=== PATIENT | male | born 1955 | race Caucasian/White ===

== ENCOUNTER 2016-11-21 00:32 | Emergency (ER) | payer BC ==
[~2016-11-21] VITALS: Ht 162.6 cm; Wt 91.4 kg
[2016-11-21 01:27] LABS: MCHC 35.6 G/DL (30.0-36.0); MCV 84.4 FL (86-99); MEAN PLAT.VOLUME 9.5 uM^3 (9.0-12.4); PLATELET COUNT 149 K/uL (156-360); RBC DIS.WIDTH-CV 11.9 % (11.8-14.6); RBC DIS.WIDTH-SD 35.9 % (39-53); RED BLOOD COUNT 4.86 M/uL (4.00-5.50); WHITE BLOOD COUNT 5.8 K/uL (4.1-10.2)
[2016-11-21 01:39] LABS: CHLORIDE 104 mEq/L (99-109); POTASSIUM 3.8 mEq/L (3.7-5.4); SODIUM 138 mEq/L (136-147)
[2016-11-21 01:41] LABS: GLUCOSE 305 mg/dL (70-99)
[2016-11-21 01:42] LABS: ANION GAP 15 MEQ/L (2-14)
[2016-11-21 01:44] LABS: GFR ESTIMATE (CALCULATED) > 59 mL/min/
[2016-11-21 01:45] LABS: UREA NITROGEN (BUN) 18 mg/dL (9-23)
[2016-11-21 01:48] LABS: TROP-I INTERPRETATION NEGATIVE; TROPONIN-I < 0.01 ng/mL (0.0-0.30)
[2016-11-21 02:12] LABS: ADD MIUA? NO; BILIRUBIN NEGATIVE; BLOOD NEGATIVE; COLOR YELLOW ((YELLOW)); GLUCOSE (STRIP) >=500; KETONES NEGATIVE; LEUKOCYTES NEGATIVE; NITRITE NEGATIVE; PROTEIN (STRIP) NEGATIVE; UCUL ADDED? NO; UROBILINOGEN 0.2 MG/DL (0.2-1.0)
[2016-11-21] MEDS ORDERED: ZANTAC150 MG PO (02:17)
[2016-11-21 02:34] VITALS: BP 161/82
== END 2016-11-21 02:35 | disposition home or self-care (01) ==
LOC: EME 00:32 → EXP 00:32
PROVIDERS: Physician Assistant
DX: R10.13 Epigastric pain (principal); I10 Essential (primary) hypertension; E11.9 Type 2 diabetes mellitus without complications; Z79.84 Long term (current) use of oral hypoglycemic drugs; T38.3X6A Underdosing of insulin and oral hypoglycemic [antidiabetic] drugs, initial encounter; Z91.128 Patient's intentional underdosing of medication regimen for other reason
CPT/HCPCS: 80048; 81003; 84484; 85027; 93005; 99281; 99284